=== PATIENT | male | born 1975 | race African-American/Black ===

== ENCOUNTER 2016-10-26 21:07 | Emergency (ER) | payer OTHER ==
--- NOTE | ~2016-10-26 | EKG ---
PATIENT: ALAN BLANKENSHIP UNIT #: [id number] Ventricular Rate: 87 BPM Atrial Rate: 87 BPM P-R Interval: 126 ms QRS Duration: 86 ms Q-T Interval: 398 ms QTC Calculation(Bezet): 478 ms P Rhine: 43 degrees Calculated R Rhine: 92 degrees Calculated T Rhine: -78 degrees Diagnosis Line: Normal sinus rhythm Diagnosis Line: Rightward axis Diagnosis Line: ST and T wave abnormality, consider inferior Diagnosis Line: ischemia Diagnosis Line: ST and T wave abnormality, consider anterolateral Diagnosis Line: ischemia Diagnosis Line: Prolonged QT Diagnosis Line: Abnormal ECG Diagnosis Line: When compared with ECG of 06-JUL-2012 20:41, Diagnosis Line: Premature ventricular complexes are no longer Diagnosis Line: Present Diagnosis Line: ST no longer elevated in Anterior leads Diagnosis Line: Inverted T waves have replaced nonspecific T wave Diagnosis Line: abnormality in Inferior leads Diagnosis Line: T wave inversion more evident in Anterior leads Diagnosis Line: Confirmed by ENZO HODGES MD ([id number]) on 10/29/2016 Diagnosis Line: 10:53:44 PM INTERPRETING MD: CARROLL PRETTY
--- NOTE | ~2016-10-26 | CR72 ---
[facility] A Service of [facility] & [facility] RADIOLOGY TEXT RESULTS PATIENT: ALAN BLANKENSHIP LOCATION: [facility] : 71 UNIT #: [id number] AGE: [address]: Melvi Gallagher MD SEX: M ORDER DR: [id number] [facility] [address] [place], [place] [address] [id number] MR#: [id number] Acc #: [id number] NAME: ALAN BLANKENSHIP. : 1975 SEX: M STUDY DATE/TIME: 10/26/2016 20:12 UNIT: [facility] ROOM: STUDY DESCRIPTION: CR Chest Single View Portable Attending Physician: Melvi Gallagher M.D. Ordering Physician: Melvi Gallagher M.D. Primary Care Physician: No Primary Care Physician MEDICAL IMAGING REPORT This report is preliminary unless electronic signature is present EXAM Chest x-ray portable HISTORY Chest pain and cough. Chest tightness started today. COMMENT A single portable frontal view of the chest timed 2011 on 10/26/2016 is compared to a study from 10/22/2014. FINDINGS The heart size is normal. There is no acute-appearing parenchymal infiltrate, acute congestive failure, pleural effusion, or pneumothorax. The film is somewhat lordotic. IMPRESSION No active disease. Dictated by... Karissa Wall M.D. THIS IS AN ELECTRONICALLY VERIFIED REPORT Karissa Wall M.D. at 10/27/2016 3:09 PM GREGOR/roxy TD: 10/27/2016 14:57 JOB #: [id number] MEDICAL IMAGING REPORT Page 1 of 1 COPY
[2016-10-26 20:57] LABS: POC - CKMB 7.9 ng/mL (0.0-7.9); POC - TROPONIN <0.05 ng/mL (<=0.05)
[~2016-10-26 21:07] MED LIST: ALBUTEROL17 G1 INH; ALBUTEROL17 GM INH; AMITRIPTYLINE150 MG PO; DOXYCYCLINE150 MG PO; IBUPROFEN800 MG PO; K-DUR20 ME2 DOB; LORTAB 7.5-5001 TAB PO; MEDROL4 MG/DOSE- PO; ROBITUSSIN A-C S5 ML PO; SEROQUEL300 M1 PO; STERAPRED5 MG/DOSE1 PO; TRAZODONE HCL150 MG PO; VALIUM10 MG PO; Z-PACK PO
[2016-10-26 21:09] LABS: BASOPHIL# 0.1 X10e3 (0-0.3); BASOPHIL% 0.9 % (0-2.5); EOSINOPHIL# 0.4 X10e3 (0-0.7); EOSINOPHIL% 6.6 % (0.0-7.0); HEMATOCRIT 44.6 % (38.0-50.0); HEMOGLOBIN 14.8 gm/dL (13.0-16.0); LYMPHOCYTE% 35.1 % (17.0-45.0); MEAN CORPUSCULAR HEMOGLOBIN 30.8 PG (28-34); MEAN CORPUSCULAR HGB CONC 33.2 g/dL (30-36); MEAN PLATELET VOLUME 9.1 FL (6.5-11.5); MONOCYTE# 0.6 X10e3 (0-1.0); MONOCYTE% 10.1 % (3.0-12.0); NEUTROPHIL# 2.7 X10e3 (1.5-7.1); NEUTROPHIL% 47.3 % (40-75); PLATELET COUNT 175 X10e3 (140-420); WHITE BLOOD COUNT 5.7 X10e3 (4.0-10.5)
[2016-10-26 21:10] LABS: DIFF IND NO
[2016-10-26 21:11] LABS: INFLUENZA A NEG (NEG); INFLUENZA B NEG (NEG)
[2016-10-26 21:32] LABS: ALBUMIN SERUM 4.3 g/dL (3.5-5.0); BILIRUBIN, DIRECT 0.2 mg/dL (0.0-0.2); BILIRUBIN,INDIRECT 0.5 mg/dL (0.0-0.9); BILIRUBIN,TOTAL 0.7 mg/dL (0.2-2.0); GLOM FILT RATE Estimated 106.4 mL/min (>60); POTASSIUM 3.5 mmol/L (3.5-5.1); PROTEIN TOTAL SERUM 7.7 g/dL (6.0-8.3)
[2016-10-26 23:07] LABS: POC - CKMB 4.2 ng/mL (0.0-7.9); POC - TROPONIN <0.05 ng/mL (<=0.05)
== END 2016-10-27 | disposition home or self-care (01) ==
LOC: CED 21:07
PROVIDERS: Student in an Organized Health Care Education/Training Program
DX: J45.901 Unspecified asthma with (acute) exacerbation (principal); J20.9 Acute bronchitis, unspecified; I10 Essential (primary) hypertension; Z90.49 Acquired absence of other specified parts of digestive tract; F17.200 Nicotine dependence, unspecified, uncomplicated
CPT/HCPCS: 36415; 71010; 80048; 80076; 82553; 83880; 84484; 85025; 87040; 87804; 93005; 94640; 96374; 99284; J2930